=== PATIENT | female | born 1960 | race Caucasian/White ===

== ENCOUNTER 2017-01-10 18:35 | Inpatient (IN) | payer OTHER ==
--- NOTE | ~2017-01-10 | OP ---
Record Of Operation [facility] [address] [place]. [address] NAME: DEWAYNE BAY : 56 STATUS : DIS IN PAT#: [id number] AGE: 56 ADM/REG DATE : 01/10/17 MR#: [id number] REPORT SERV DATE: 01/26/17 DICTATED BY: TRISTON BROOKS JR. DATE: 01/26/17 REPORT STATUS : Draft TRANSCRIBED BY: MODJesus DATE: 01/26/17 DATE OF PROCEDURE: 01/12/2017 CARDIAC CATHETERIZATION AND VENTRICULOGRAM INDICATION: [id number] myocardial infarction. PROCEDURE: Left heart catheterization with coronary angiography and grafts. ANESTHESIA: IV conscious sedation was utilized. Diagnostic fluoro time was 2.7 minutes with fluoroscopy dose up to 120 mGy. COMPLICATIONS: None. ESTIMATED BLOOD LOSS: Approximately 5 mL. DISPOSITION: Telemetry. DESCRIPTION OF PROCEDURE: After informed consent was obtained, the patient was taken to the cardiac catheterization lab, where she was sterilely draped and prepped. Then, IV conscious sedation was administered with local anesthesia to the right femoral region. Next, a 6- Mexican sheath was placed in the right femoral artery, secured and flushed according to protocol utilizing modified Seldinger technique. Next, a Myesha left catheter was advanced over wire under fluoroscopy to the left main coronary artery, and selective engagement of the left coronary artery was performed with angiography. Next, this catheter was then exchanged for a Myesha right catheter 4.0, via which a cineangiography was performed in the SYRIAC and AP cranial views. The catheter was then redirected to the vein graft to the right as well as vein graft to the circumflex and obtuse marginal, via which a cineangiography was performed in the SYRIAC and LEACH caudal views. The catheter was then redirected over wire under fluoroscopy to the JIMENEZ. The JIMENEZ cineangiography was performed in the AP view. Next, this catheter was then exchanged over wire under fluoroscopy for an angled pigtail catheter, for which cineangiography was performed in the LEACH view after clearly prolapsing the pigtail catheter across the aortic valve into the left ventricle. Cineangiography was performed following hemodynamic tracings. Hemodynamic tracings were performed after a cineangiography as well as during pullback of the pigtail catheter tip back across the aortic valve into the aorta. No significant gradient was noted. The case was then concluded with hemostasis by manual pressure. HEMODYNAMICS: Left ventricular end-diastolic pressure 19 mmHg. Left ventricular peak systolic pressure 150 mmHg. Aortic minimum diastolic pressure 52 mmHg. Aortic peak systolic pressure 109 mmHg. There was no gradient upon withdrawal of the catheter from the left ventricle to the aorta. ANGIOGRAPHY: Left main coronary artery, 100% ostial stenosis. Left anterior descending coronary artery, moderate-sized vessel, approximately 3 mm in diameter, which bifurcates Record Of Operation [facility] [id number] [place]. [address] NAME: DEWAYNE BAY : 56 STATUS : DIS IN PAT#: [id number] AGE: 56 ADM/REG DATE : 01/10/17 MR#: [id number] REPORT SERV DATE: 01/26/17 DICTATED BY: TRISTON BROOKS JR. DATE: 01/26/17 REPORT STATUS : Draft TRANSCRIBED BY: MANAS DATE: 01/26/17 into a thin first diagonal as well as a thin long left anterior descending, approximately 1.5 mm in diameter distally. The JIMENEZ can be seen refluxing retrogradely. Circumflex coronary artery, medium-sized vessel, approximately 2.5 mm in diameter with a long thin first obtuse marginal. Right coronary artery, a delicate 2.5 mm vessel, bifurcating distally into a branching right posterolateral and branching right PDA. This vessel appears otherwise normal. Saphenous vein graft to the right coronary artery occluded. Saphenous vein graft to the first obtuse marginal patent and with diffuse disease in the graft itself up to 20% with JEFF-3 flow noted distally. The obtuse marginal graft can be seen filling the proximal and distal circumflex, the obtuse marginal, proximal LAD, and distal LAD with reflux noted in the left internal mammary artery. Left internal mammary artery graft patent, approximately 2 mm in diameter with a distal runoff, approximately JEFF-3 noted distally. VENTRICULOGRAM: [id number] LV systolic dysfunction with moderate anterolateral and inferoapical hypokinesis and apical akinesis with at least moderate concentric left ventricle hypertrophy with ejection fraction estimated at approximately 40%. IMPRESSION: 1. Multivessel epicardial coronary artery disease as described above with patent, disease- free right coronary artery and 100% stenosis of the left main coronary artery with patent saphenous vein graft to the obtuse marginal, the saphenous vein graft is mildly to moderately diseased. Patent JIMENEZ to the mid LAD, the distal LAD is small and thin. The first diagonal coronary artery is thin and less than 1 mm in diameter. 2. Elevated left ventricular end-diastolic pressure. 3. Moderate LV systolic dysfunction as described above with estimated ejection fraction of 40% with regional wall motion abnormalities as described above. STEPHANIE/MANAS Triston Brooks Jr., M.D. / [id number] CC: Trevin Brown Jr., Tom D
--- NOTE | ~2017-01-10 | ECH ---
Echocardiogram [facility] [address] [place]. [address] NAME: DEWAYNE BAY : 56 STATUS : DIS IN PAT#: [id number] AGE: 56 ADM/REG DATE : 01/10/17 MR#: [id number] REPORT SERV DATE: 01/12/17 DICTATED BY: TRISTON CEE JR. DATE: 01/12/17 REPORT STATUS : Draft TRANSCRIBED BY: MANAS DATE: 01/12/17 REFERRING: Frederick Elliott. TECH: [facility]. INDICATION FOR ECHO: Evaluation for LV thrombus, ischemic cardiomyopathy. 2-D INTERPRETATION: M-mode and 2-dimensional echocardiography were performed. Definity contrast imaging agent was utilized to enhance endocardial borders. Left atrium was normal in size measuring 3.1 cm compared to an aortic root diameter of 3.1 cm. The left ventricle was normal in size measuring 4.3 cm in end-diastole and 3.3 cm in end-systole. Overall, there appeared to be mild to moderate reduction of left ventricular systolic function. Ejection fraction of approximately 45-50% with mild posterolateral hypokinesis. The aortic valve was trileaflet. The mitral valve appeared to be structurally normal. The remaining cardiac valves appeared to be structurally normal. No pericardial effusion could be identified. A small right pleural effusion cannot be excluded. The costal angles were not well visualized. A small left pleural effusion cannot be excluded, but is suggested no intracardiac mass is identified. DOPPLER/COLOR FLOW: Conventional and Doppler color flow imaging were performed. Mitral inflow patterns were abnormal and grade 2 diastolic dysfunction is noted with impaired relaxation. There was trace mitral insufficiency. There was tricuspid insufficiency with peak right ventricular systolic pressure of 22 mmHg. Peak gradient across the aortic valve measured 5 mmHg. There is no aortic insufficiency. CONCLUSION: MILD REDUCTION OF LEFT VENTRICULAR SYSTOLIC FUNCTION WITH DIASTOLIC DYSFUNCTION, PHYSIOLOGIC TO MILD MITRAL INSUFFICIENCY. TRICUSPID INSUFFICIENCY WITH NORMAL PULMONARY PRESSURES, REGIONAL WALL MOTION ABNORMALITIES NOTED. CANNOT EXCLUDE PLEURAL EFFUSIONS. NO INTRACARDIAC MASS WAS IDENTIFIED. /MANAS Triston Cee Jr., M.D. / [id number] CC: Triston Cee Jr., M.D. Carlos Elliott
--- NOTE | ~2017-01-10 | HP ---
History And Physical [facility] [address] [place]. [address] NAME: DEWAYNE BAY : 56 STATUS : DIS IN PAT#: [id number] AGE: 56 ADM/REG DATE : 01/10/17 MR#: [id number] REPORT SERV DATE: 01/11/17 DICTATED BY: TRISTON BROOKS JR. DATE: 01/11/17 REPORT STATUS : Draft TRANSCRIBED BY: MANAS DATE: 01/11/17 DATE OF ADMISSION: 01/10/2017 CHIEF COMPLAINT: Chest pain. HISTORY OF PRESENT ILLNESS: The patient is a 56-year-old white female with history of known epicardial coronary artery disease with LV systolic dysfunction with ejection fraction known recently at 35-40% with continued tobacco use against medical advice with poor compliance with medication, who had cardiac catheterization performed in the last six months for which grafts at that time were noted to be open and patent. She was noted to have saphenous vein graft to the OM and JIMENEZ to the LAD, all unchanged from her last 01/11/2015 cardiac catheterization. She now presents to [facility] with COPD exacerbation and bradycardia and an elevated troponin of 3.5. She has been on warfarin but INR is subtherapeutic at 1.3. She denies any fevers or chills. REVIEW OF SYSTEMS: A 10-point review of systems otherwise is unremarkable. ALLERGIES: NITROGLYCERIN AND WELLBUTRIN, BUT SHE HAS TAKEN SUBLINGUAL NITROGLYCERIN IN THE PAST. HOME MEDICATIONS: Include aspirin 81 mg daily; EpiPen; levothyroxine 75 mcg daily; nicotine transdermal patch 14 mg topically every morning; Klonopin 0.5 mg b.i.d. p.r.n.; warfarin 5 mg daily, last dose 01/10/2017. No other medications are noted. PAST MEDICAL HISTORY: Notable for history of hypothyroidism, chronic constipation, emphysema, history of prior LV thrombus, history of ischemic cardiomyopathy, coronary artery disease. No diabetes. History of dyslipidemia. PAST SURGICAL HISTORY: Notable for prior cardiac catheterization, prior CAB. SOCIAL HISTORY: Notable for continued tobacco use. No ethanol use. FAMILY HISTORY: Notable for heart disease. PHYSICAL EXAMINATION: VITAL SIGNS: Blood pressure 90/54, now 115/62 mmHg; pulse was 70; temperature is 96.4. HEENT: Unremarkable. NECK: Supple without jugular venous distention. CARDIOVASCULAR SYSTEM: Regular rate and rhythm. S4, questionable S3. LUNGS: Notable for wheezes bilaterally. ABDOMEN: Benign without hepatomegaly. Bowel sounds are normal. EXTREMITIES: 1+ with no pedal edema. NEUROLOGIC: She is grossly intact. LABORATORY DATA: EKG is notable for sinus bradycardia with nonspecific ST changes and high History And Physical [address] [place]. [address] NAME: DEWAYNE BAY : 56 STATUS : DIS IN PAT#: [id number] AGE: 56 ADM/REG DATE : 01/10/17 MR#: [id number] REPORT SERV DATE: 01/11/17 DICTATED BY: TRISTON BROOKS JR. DATE: 01/11/17 REPORT STATUS : Draft TRANSCRIBED BY: MANAS DATE: 01/11/17 lateral leads. Sodium 144, potassium 3.4, chloride 111, BUN 16, creatinine 0.49, glucose of 87, calcium 8.3, magnesium 2.2. H and H of 10.8 and 33.6, white count 6.9, platelet count of 419,000, now 308,000. Troponin of 3.57, now 3.42. Chest x-ray: Mild cardiomegaly without an interstitial infiltrate. IMPRESSION: Multivessel epicardial coronary artery disease with history of CAB; continued tobacco use, on nicotine patch with poor compliance with medications, off all cardiac medicines. PLANS AND RECOMMENDATIONS: 1. Cardiac catheterization. 2. Chronic obstructive pulmonary disease exacerbation. We will plan to begin nebulizers and steroid treatment, may list Pulmonary either inpatient or outpatient. 3. History of hypothyroidism. Will need TSH. 4. Further recommendations to follow. Note: The patient is aware of cardiac catheterization in the morning and is aware of risk of 1% chance of , 1 in 500 chance of stroke, chance of bleeding or infection anytime we enter the skin or damage to heart, lungs, blood vessels, kidneys, and can sign consent. We will also enlist dietitian. STEPHANIE/MANAS Triston Brooks Jr., M.D. / [id number] CC: Trevin Brown Jr., Tom D
[2017-01-10 19:34] LABS: BASOPHILS 0.1 %; BASOPHILS ABSOLUTE 0.01 10/3/uL (0.0-0.16); EOSINOPHILS ABSOLUTE 0.09 10/3/uL (0.0-0.53); ER CBC TAT 0 Hrs 05 Mins; HEMATOCRIT 35.6 % (36.0-48.0); HEMOGLOBIN 11.4 g/dL (12.0-16.0); IMMATURE GRANULOCYTES 0.3 %; IMMATURE GRANULOCYTES ABSOLUTE 0.03 10/3/uL (0.0-0.11); LYMPHOCYTES 29.2 %; LYMPHOCYTES ABSOLUTE 2.65 10/3/uL (0.67-4.30); MANUAL DIFF NO %; MEAN CORPUSCULAR VOLUME 93.7 fL (80-100); MEAN PLATELET VOLUME 9.7 fL (9.2-13.0); MONOCYTES 7.9 %; MONOCYTES ABSOLUTE 0.72 10/3/uL (0.21-1.20); NEUTROPHILS 61.5 %; NEUTROPHILS ABSOLUTE 5.57 10/3/uL (2.02-8.40); PLATELET COUNT 418 10/3/uL (150-400); WHITE BLOOD CELLS 9.1 10/3/uL (4.5-10.5)
[2017-01-10 19:42] LABS: INTERNATIONAL NORMAL RATI 1.2 UNITS (-); PROTIME (NOT ORD) 15.2 SEC (12.0-14.5)
[2017-01-10 19:52] LABS: A/G RATIO 0.7 (0.7-1.9); ALBUMIN 3.1 G/DL (3.5-5.0); ALKALINE PHOSPHATASE 80 U/L (45-117); BUN (BLOOD UREA NITROGEN) 17 MG/DL (6-23); CALCIUM, SERUM 8.9 MG/DL (8.5-10.4); CHLORIDE, SERUM 106 MMOL/L (96-112); CO2 (CARBON DIOXIDE) 29 MMOL/L (24-34); CREATININE 0.77 MG/DL (0.55-1.02); GFR AFRICAN AMERICAN 99 ML/MIN (>=60); GFR NON AFRICAN AMERICAN 85 ML/MIN (>=60); GLOBULIN 4.3 G/DL (2.5-4.1); GLUCOSE, SERUM 86 MG/DL (60-99); SGPT(ALT) 13 U/L (5-65); SODIUM, SERUM 143 MMOL/L (135-148); TOTAL BILIRUBIN 0.5 MG/DL (0-1.2); TOTAL PROTEIN 7.4 G/DL (6.0-8.5)
[2017-01-10 19:53] LABS: POTASSIUM, SERUM 4.4 MMOL/L (3.5-5.3); SGOT(AST) 40 U/L (5-40); TROPONIN I 3.57 NG/ML (<0.05)
[2017-01-10] MEDS ORDERED: HABIT14 TOP (21:09)
[2017-01-10] MEDS ORDERED: SYN075 PO (21:09)
[2017-01-10] MEDS ORDERED: C5 PO (21:09)
[2017-01-10] MEDS ORDERED: KLONO1 PO (21:10)
[2017-01-10] MEDS ORDERED: EPIPEN0.3 IM (21:11)
[2017-01-10] MEDS ORDERED: LOVENOX80 SC (21:14)
[2017-01-10] MEDS ORDERED: ASAB PO (21:15)
[2017-01-11 05:01] LABS: BASOPHILS 0.3 %; BASOPHILS ABSOLUTE 0.02 10/3/uL (0.0-0.16); EOSINOPHILS 2.5 %; EOSINOPHILS ABSOLUTE 0.17 10/3/uL (0.0-0.53); HEMATOCRIT 33.6 % (36.0-48.0); HEMOGLOBIN 10.8 g/dL (12.0-16.0); IMMATURE GRANULOCYTES 0.3 %; IMMATURE GRANULOCYTES ABSOLUTE 0.02 10/3/uL (0.0-0.11); LYMPHOCYTES 43.3 %; LYMPHOCYTES ABSOLUTE 2.98 10/3/uL (0.67-4.30); MEAN CORPUS HGB CONC 32.1 g/dL (32.0-36.0); MEAN CORPUSCULAR HEMOGLOB 30.3 pg (26.0-34.0); MEAN CORPUSCULAR VOLUME 94.1 fL (80-100); MEAN PLATELET VOLUME 9.8 fL (9.2-13.0); MONOCYTES 7.7 %; MONOCYTES ABSOLUTE 0.53 10/3/uL (0.21-1.20); NEUTROPHILS 45.9 %; NEUTROPHILS ABSOLUTE 3.17 10/3/uL (2.02-8.40); PLATELET COUNT 308 10/3/uL (150-400); RBC DISTRIBUTION WIDTH 15.9 % (12.0-16.0); RED CELL COUNT 3.57 10/6/uL (4.0-5.6); WHITE BLOOD CELLS 6.9 10/3/uL (4.5-10.5)
[2017-01-11 05:02] LABS: MANUAL DIFF NO %
[2017-01-11 05:08] LABS: INTERNATIONAL NORMAL RATI 1.3 UNITS (-); PARTIAL THROMBO TIME 36.4 SEC (22.5-37.2); PROTIME (NOT ORD) 16.5 SEC (12.0-14.5)
[2017-01-11 05:17] LABS: BUN (BLOOD UREA NITROGEN) 16 MG/DL (6-23); CALCIUM, SERUM 8.3 MG/DL (8.5-10.4); CHLORIDE, SERUM 111 MMOL/L (96-112); CHOL/HDL RATIO(NOT ORDER) 4.7 (0-5); CHOLESTEROL 165 MG/DL (< 200); CREATININE 0.49 MG/DL (0.55-1.02); GFR AFRICAN AMERICAN 124 ML/MIN (>=60); GFR NON AFRICAN AMERICAN 107 ML/MIN (>=60); GLUCOSE, SERUM 87 MG/DL (60-99); HDL CHOLESTEROL 35 MG/DL (> 49); LDL CHOLESTEROL 112 MG/DL (< 130); NON-HDL CHOLESTEROL 130 MG/DL (< 160); SODIUM, SERUM 144 MMOL/L (135-148); TRIGLYCERIDE 93 MG/DL (< 150)
[2017-01-11 05:20] LABS: CO2 (CARBON DIOXIDE) 23 MMOL/L (24-34); POTASSIUM, SERUM 3.4 MMOL/L (3.5-5.3)
[2017-01-11 05:21] LABS: TROPONIN I 3.42 NG/ML (<0.05)
[2017-01-12 05:58] LABS: BASOPHILS 0 %; EOSINOPHILS 0 %; HEMATOCRIT 34.9 % (36.0-48.0); HEMOGLOBIN 11.4 g/dL (12.0-16.0); IMMATURE GRANULOCYTES 0.2 %; IMMATURE GRANULOCYTES ABSOLUTE 0.02 10/3/uL (0.0-0.11); LYMPHOCYTES 11.6 %; MANUAL DIFF NO %; MEAN CORPUS HGB CONC 32.7 g/dL (32.0-36.0); MEAN CORPUSCULAR VOLUME 91.8 fL (80-100); MEAN PLATELET VOLUME 9.5 fL (9.2-13.0); MONOCYTES 1.2 %; MONOCYTES ABSOLUTE 0.13 10/3/uL (0.21-1.20); NEUTROPHILS ABSOLUTE 9.78 10/3/uL (2.02-8.40); PLATELET COUNT 362 10/3/uL (150-400); RBC DISTRIBUTION WIDTH 15.3 % (12.0-16.0); WHITE BLOOD CELLS 11.2 10/3/uL (4.5-10.5)
[2017-01-12 06:02] LABS: INTERNATIONAL NORMAL RATI 1.2 UNITS (-); PROTIME (NOT ORD) 15.1 SEC (12.0-14.5)
[2017-01-12 06:30] LABS: CALCIUM, SERUM 8.7 MG/DL (8.5-10.4); CHLORIDE, SERUM 110 MMOL/L (96-112); CHOL/HDL RATIO(NOT ORDER) 4.1 (0-5); CHOLESTEROL 192 MG/DL (< 200); CO2 (CARBON DIOXIDE) 22 MMOL/L (24-34); CREATININE 0.53 MG/DL (0.55-1.02); FREE T4 1.08 NG/DL (0.76-1.46); GFR AFRICAN AMERICAN 121 ML/MIN (>=60); GFR NON AFRICAN AMERICAN 105 ML/MIN (>=60); LDL CHOLESTEROL 129 MG/DL (< 130); NON-HDL CHOLESTEROL 145 MG/DL (< 160); POTASSIUM, SERUM 3.8 MMOL/L (3.5-5.3); SODIUM, SERUM 142 MMOL/L (135-148); TRIGLYCERIDE 82 MG/DL (< 150)
[2017-01-12 06:32] LABS: BUN (BLOOD UREA NITROGEN) 10 MG/DL (6-23); GLUCOSE, SERUM 156 MG/DL (60-99); HDL CHOLESTEROL 47 MG/DL (> 49)
[2017-01-12] MEDS ORDERED: PRIN2.5 (16:35)
[2017-01-12] MEDS ORDERED: DULERA 200 MCG/13 GM INH (16:39)
[2017-01-12] MEDS ORDERED: LIPITOR40 (16:39)
[2017-01-12] MEDS ORDERED: PEP20 PO (16:40)
[2017-01-12] MEDS ORDERED: COREG3 PO (16:40)
[2017-01-12] MEDS ORDERED: MEDROLPAK4 PO (16:41)
[2017-01-12] MEDS ORDERED: PLAVIX PO (16:43)
[2017-01-12] MEDS ORDERED: ALBUTEROL5 INH (16:43)
[2017-01-12] MEDS ORDERED: PLAVIX (16:44)
== END 2017-01-12 21:51 | disposition home or self-care (01) | DRG 281 ==
LOC: ER 18:35 → 6NO 21:20
PROVIDERS: Emergency Medicine; Internal Medicine Cardiovascular Disease
PROC: 4A023N7 Measurement of Cardiac Sampling and Pressure, Left Heart, Percutaneous Approach (ICD-10-PCS; principal; 2017-01-12)
PROC: B2111ZZ Fluoroscopy of Multiple Coronary Arteries using Low Osmolar Contrast (ICD-10-PCS; 2017-01-12)
PROC: B2151ZZ Fluoroscopy of Left Heart using Low Osmolar Contrast (ICD-10-PCS; 2017-01-12)
PROC: B2181ZZ Fluoroscopy of Left Internal Mammary Bypass Graft using Low Osmolar Contrast (ICD-10-PCS; 2017-01-12)
PROC: B2131ZZ Fluoroscopy of Multiple Coronary Artery Bypass Grafts using Low Osmolar Contrast (ICD-10-PCS; 2017-01-12)
DX: I21.4 Non-ST elevation (NSTEMI) myocardial infarction (principal); J44.1 Chronic obstructive pulmonary disease with (acute) exacerbation; Z95.1 Presence of aortocoronary bypass graft; I51.81 Takotsubo syndrome; R00.1 Bradycardia, unspecified; F17.210 Nicotine dependence, cigarettes, uncomplicated; E03.9 Hypothyroidism, unspecified; I25.10 Atherosclerotic heart disease of native coronary artery without angina pectoris; K59.00 Constipation, unspecified; I25.5 Ischemic cardiomyopathy; E78.5 Hyperlipidemia, unspecified; Z79.82 Long term (current) use of aspirin; Z79.01 Long term (current) use of anticoagulants; Z91.14 Patient's other noncompliance with medication regimen
CPT/HCPCS: 71010; 80048; 80053; 80061; 83735; 84439; 84443; 84484; 84703; 85025; 85347; 85610; 85730; 93005; 93459; 94640; 99152; 99153; 99285; A9270-GY; C1769; C1894; C8929; J2250; J2930; J3010; Q9957; Q9967